=== PATIENT | male | born 1995 | race Caucasian/White ===

== ENCOUNTER 2020-06-05 11:50 | Outpatient (CLI) | payer BC | END 2020-06-05 11:51 | disposition home or self-care (01) | LOC: COV 11:50 | PROVIDERS: ATTEND Family Medicine | DX: R05 Cough (principal); R53.83 Other fatigue; J02.9 Acute pharyngitis, unspecified; R19.7 Diarrhea, unspecified; R09.81 Nasal congestion; Z20.828 Contact with and (suspected) exposure to other viral communicable diseases ==